=== PATIENT | male | born 2000 | race African-American/Black ===

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

== ENCOUNTER 2023-08-29 13:02 | Emergency (ER) | payer MEDICAID, OTHER ==
[~2023-08-29] VITALS: Ht 180.3 cm; Wt 122.0 kg
[~2023-08-29 13:02] MED LIST changes: +IBUP-2028 MT
[2023-08-29 13:15] VITALS: O2SAT 100
[2023-08-29] MEDS: IBUPROFEN 600MG TABLET PO ONE (13:45)
[2023-08-29] MEDS ORDERED: IBUP-2029 MT (14:45)
[2023-08-29 15:29] VITALS: BP 123/63; PULSE 75; RESP 18; TEMP 98
== END 2023-08-29 17:50 | disposition home or self-care (01) ==
LOC: ER 13:02
DX: S99.911A Unspecified injury of right ankle, initial encounter (principal); J45.909 Unspecified asthma, uncomplicated; X58.XXXA Exposure to other specified factors, initial encounter; Y93.89 Activity, other specified; Y92.89 Other specified places as the place of occurrence of the external cause; Y99.8 Other external cause status
CPT/HCPCS: 73590; 73600; 73620; 82542; 99284